=== PATIENT | female | born 1990 | race American Indian/Alaskan Native ===

== ENCOUNTER 2019-05-22 02:31 | Emergency (ER) | payer SELFPAY ==
[2019-05-22] MEDS ORDERED: FAMOTIDINE 20 MG TAB PO ONE (04:00)
[2019-05-22] MEDS ORDERED: diphenhydrAMINE 25 MG/10 ML ORAL LIQUID PO ONE (04:00)
[2019-05-22] MEDS ORDERED: methylPREDNISolone Sod Succinate 125 MG/2 ML INJ IM ONE (04:00)
--- NOTE | 2019-05-22 04:45 | Emergency Department Report ---
ED Allergic Reaction HPI - General Chief complaint: Allergic Reaction Stated complaint: INCHING, SWELLING, JOINT PAIN Source: patient Mode of arrival: Ambulatory Limitations: No Limitations - History of Present Illness Initial Comments: Patient is a nulliparous 29-year-old -[place] female with past medical history of seizures who presented to the ED with complaint of acute onset persistent diffuse itchy erythematous maculopapular urticarial rashes with lower lip swelling for the last 2 days despite taking [id number]-fyw-[id number] medications Zyrtec and Benadryl. Patient states that she has previously had recurrent allergic reaction type symptoms but has never known what the etiology of the allergy may be. 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 Patient states that in the last 6 hours, this lower lip swelling has persisted and gotten worse. Patient denies tongue swelling, dysphagia, dysphonia, wheezing, cough, shortness of breath, nausea, vomiting, diarrhea, abdominal pain, dizziness, fever, chills, or change in vision and syncope. MD Complaint: allergic reaction, hives, facial swelling -: Sudden, days(s) (2) Exposure: unknown Symptoms: rash, itching, facial swelling, lip swelling (LOWER LIP), other (diffuse joint pains). denies: difficulty swallowing, difficulty breathing, orolingual swelling, hoarseness, syncopy, dizziness, nausea, vomiting, abdominal pain Severity: moderate Treatment Prior to Arrival: benadryl Previous Allergy History: other (allergic reaction to unknown substance) - Related Data Previous Rx's Medication Instructions Recorded Last Taken Type Famotidine [Pepcid] 20 mg PO Q12H #60 tablet 05/22/19 Unknown Rx Naproxen 500 mg PO Q12H PRN #24 tablet 05/22/19 Unknown Rx Prednisone [predniSONE 10 mg 10 mg PO .TAPER #21 tab.ds.pk 05/22/19 Unknown Rx (6-Day Pack, 21 Tabs)] hydrOXYzine PAMOATE [Vistaril] 25 mg PO Q6HR PRN #30 capsule 05/22/19 Unknown Rx Allergies Allergy/AdvReac Type Severity Reaction Status Date / Time amoxicillin Allergy Anaphylaxis Verified 05/22/19 02:36 ED Review of Systems ROS: Stated complaint: INCHING, SWELLING, JOINT PAIN Other details as noted in HPI Constitutional: denies: chills, fever Eyes: denies: eye pain, eye discharge, vision change ENT: other (Lower lip swelling). denies: ear pain, throat pain Respiratory: denies: cough, shortness of breath, wheezing Cardiovascular: denies: chest pain, palpitations Endocrine: no symptoms reported Gastrointestinal: denies: abdominal pain, nausea, vomiting, diarrhea Genitourinary: denies: urgency, dysuria, discharge Musculoskeletal: denies: back pain, joint swelling, arthralgia Skin: rash (Diffuse erythematous maculopapular itchy urticarial rashes), change in color, pruritus, other (Diffuse erythematous itchy maculopapular urticarial rashes). denies: lesions Neurological: denies: headache, weakness, paresthesias Psychiatric: anxiety. denies: depression Hematological/Lymphatic: denies: easy bleeding, easy bruising ED Past Medical Hx - Past Medical History Hx Diabetes: Yes Hx Seizures: Yes Additional medical history: Anemia - Surgical History Past Surgical History?: No - Social History Smoking Status: Never Smoker Substance Use Type: Alcohol, Marijuana - Medications Home Medications: Home Medications Medication Instructions Recorded Confirmed Last Taken Type Famotidine [Pepcid] 20 mg PO Q12H #60 tablet 05/22/19 Unknown Rx Naproxen 500 mg PO Q12H PRN #24 tablet 05/22/19 Unknown Rx Prednisone [predniSONE 10 mg 10 mg PO .TAPER #21 tab.ds.pk 05/22/19 Unknown Rx (6-Day Pack, 21 Tabs)] hydrOXYzine PAMOATE [Vistaril] 25 mg PO Q6HR PRN #30 capsule 05/22/19 Unknown Rx ED Physical Exam - General Limitations: No Limitations General appearance: alert, in no apparent distress - Head Head exam: Present: atraumatic, normocephalic, normal inspection - Eye Eye exam: Present: normal appearance, PERRL, EOMI Pupils: Present: normal accommodation - ENT ENT exam: Present: mucous membranes moist, TM's normal bilaterally, normal external ear exam, other (Mild lower lip swelling) - Neck Neck exam: Present: normal inspection, full ROM - Respiratory Respiratory exam: Present: normal lung sounds bilaterally. Absent: respiratory distress, wheezes, rales, rhonchi, chest wall tenderness, accessory muscle use, decreased breath sounds - Cardiovascular Cardiovascular Exam: Present: regular rate, normal rhythm, normal heart sounds. Absent: systolic murmur, diastolic murmur, rubs, gallop - GI/Abdominal GI/Abdominal exam: Present: soft, normal bowel sounds. Absent: tenderness, guarding, hyperactive bowel sounds, hypoactive bowel sounds, organomegaly - Extremities Exam Extremities exam: Present: normal inspection, full ROM, normal capillary refill - Back Exam Back exam: Present: normal inspection, full ROM. Absent: tenderness, muscle spasm, paraspinal tenderness, vertebral tenderness, rash noted - Neurological Exam Neurological exam: Present: alert, oriented X3, CN II-XII intact, normal gait, reflexes normal - Psychiatric Psychiatric exam: Present: normal affect, normal mood, anxious - Skin Skin exam: Present: warm, dry, intact, normal color, rash (Diffuse mild erythematous maculopapular urticarial rashes), erythema, urticaria ED Course Vital Signs 05/22/19 02:35 Temperature 97.6 F Pulse Rate 82 Respiratory 18 Rate Blood Pressure 134/81 O2 Sat by Pulse 100 Oximetry ED Medical Decision Making - Medical Decision Making This is a nulliparous 29-year-old -[place] female with no past medical history who presented to the ED with complaint of acute onset persistent diffuse itchy erythematous maculopapular urticarial rashes with lower lip swelling for the last 2 days despite taking [id number] medications Zyrtec and Benadryl. Patient states that she has previously had recurrent allergic reaction type symptoms but has never known what the etiology of the allergy may be. 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 Patient states that in the last 6 hours, this lower lip swelling has persisted and gotten worse. In the ED, patient is alert and oriented x3 and is not in distress. Patient was treated in the ED with steroid, Pepcid and also given Benadryl. On reevaluation, patient's itching resolved in the ED and patient was discharged home on prescriptions of steroids, Vistaril and Pepcid. Patient was advised to follow-up with her primary care physician in 3 to 5 days for reevaluation. Patient was also advised to consider doing aller gy testing to determine what she may be allergic to as to cause recurrent symptoms. Patient was otherwise advised to return to the ED immediately if symptoms get worse. - Differential Diagnosis Urticaria; Allergic reaction; Angioedema Critical care attestation.: If time is entered above; I have spent that time in minutes in the direct care of this critically ill patient, excluding procedure time. ED Disposition Clinical Impression: Facial swelling Acute allergic reaction Qualifiers: Encounter type: initial encounter Qualified Code(s): T78.40XA - Allergy, unspecified, initial encounter Arthralgia Qualifiers: Joint pain location: unspecified Qualified Code(s): M25.50 - Pain in unspecified joint Disposition: TO HOME OR SELFCARE Is pt being admited?: No Does the pt Need Aspirin: No Condition: Stable Instructions: Urticaria (ED), Allergies (ED), Itchy Skin (ED), Arthralgia (ED) Additional Instructions: Take medication with food, drink plenty of fluids and follow-up with your primar y care physician in 3 to 5 days for reevaluation. Consider allergy testing to determine what you may be allergic to. Return to the ED immediately if symptoms get worse. Prescriptions: Naproxen 500 mg PO Q12H PRN #24 tablet PRN Reason: Pain , Severe (7-10) Famotidine [Pepcid] 20 mg PO Q12H #60 tablet Prednisone [predniSONE 10 mg (6-Day Pack, 21 Tabs)] 10 mg PO .TAPER #21 tab.ds.pk hydrOXYzine PAMOATE [Vistaril] 25 mg PO Q6HR PRN #30 capsule PRN Reason: Itching Referrals: [facility] [Provider Group] - 3-5 Days Time of Disposition: 04:43 Print Language: CAMBODIAN
[2019-05-22 06:01] VITALS: BP 124/75
== END 2019-05-22 04:45 | disposition home or self-care (01) ==
LOC: ED 02:31
DX: T78.49XA Other allergy, initial encounter (principal); R22.0 Localized swelling, mass and lump, head; M25.50 Pain in unspecified joint; E11.9 Type 2 diabetes mellitus without complications; R56.9 Unspecified convulsions; D64.9 Anemia, unspecified; F12.10 Cannabis abuse, uncomplicated; Z79.899 Other long term (current) drug therapy; Z88.1 Allergy status to other antibiotic agents; X58.XXXA Exposure to other specified factors, initial encounter
CPT/HCPCS: 96372; 99282; J2930; Q0163